=== PATIENT | female | born 2000 | race Two or more races ===

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

== ENCOUNTER 2023-06-07 12:47 | Emergency (ER) | payer MEDICAID ==
[~2023-06-07] VITALS: Ht 152.4 cm; Wt 66.7 kg
[2023-06-07] MEDS ORDERED: AMOX875T4 PO ×3 (15:41→16:19)
[2023-06-07 16:17] VITALS: BP 104/56; PULSE 69; RESP 18; TEMP 98.2; O2SAT 100
== END 2023-06-07 16:22 | disposition home or self-care (01) ==
LOC: ER 12:47
DX: B34.9 Viral infection, unspecified (principal); H92.01 Otalgia, right ear; J02.9 Acute pharyngitis, unspecified